=== PATIENT | female | born 1990 | race Caucasian/White ===

== ENCOUNTER 2017-11-20 15:21 | Emergency (ER) | payer OTHER ==
[2017-11-20 15:29] VITALS: RESP 18; TEMP 97.8
[2017-11-20] MEDS ORDERED: MORPHINE SULFATE 4 MG/ML SYRINGE IVP STA (16:03)
[2017-11-20] MEDS ORDERED: SODIUM CHLORIDE 0.9% 1,000 ML IV STA (16:03)
[2017-11-20] MEDS ORDERED: ONDANSETRON 4 MG/2 ML VIAL IVP STA (16:03)
--- NOTE | 2017-11-20 16:08 | ED ---
Chest Pain HPI - General Chief Complaint: Chest Pain Stated Complaint: Chest pain/dizzy Time Seen by Provider: 11/20/17 15:53 Source: patient Mode of arrival: ambulatory Limitations: no limitations - History of Present Illness Initial Comments: She presented with the chest pain and palpitation he started few hours ago she had a short episode of dizziness at work that palpitation and then the chest pain I did started a few hours ago there was no exertion involved, no nausea no vomiting no shortness of breath no pleuritic chest pain no history of any DVT or PE. Denies any fever no chills she is not coughing up any phlegm no symptoms of any infectious process. She did smoke for about 11 years now she is trying E cigarettes and now she denies any controls no history of pulmonary embolism or DVT in the past. Eyes any abdominal pain no frequency urgency dysuria no symptoms of TIA or CVA - Related Data Home Medications Medication Instructions Recorded Confirmed Ferrous Sulfate [Feosol] 325 mg PO DAILY 11/20/17 11/20/17 Ibuprofen [Motrin Ib] 400 - 600 mg PO Q6H PRN 11/20/17 11/20/17 Melatonin 5 mg PO HS 11/20/17 11/20/17 Allergies Allergy/AdvReac Type Severity Reaction Status Date / Time neomycin Allergy Rash/Hives Verified 11/20/17 16:10 Review of Systems ROS Statement: Those systems with pertinent positive or pertinent negative responses have been documented in the HPI. ROS Other: All systems not noted in ROS Statement are negative. EKG Findings - EKG Comments: EKG Findings:: EKG is a normal sinus rhythm ventricular rate is 72 MS interval is 162 QRS duration is 80 QT/QTc is 368/42 of this EKG does not reveal any ST elevation or ST depression Past Medical History Past Medical History: Asthma Additional Past Medical History / Comment(s): Anemia History of Any Multi-Drug Resistant Organisms: None Reported Additional Past Surgical History / Comment(s): Cyst , D&C Past Psychological History: No Psychological Hx Reported Smoking Status: Current every day smoker Past Alcohol Use History: Occasional Past Drug Use History: None Reported General Exam - General Exam Comments Initial Comments: General: The patient is awake and alert, in no distress, and does not appear acutely ill. Skin: Skin is warm and dry and no rashes or lesions are noted. Eye: Pupils are equal, round and reactive to light, extra-ocular movements are intact; there is normal conjunctiva bilaterally. Ears, nose, mouth and throat: There are moist mucous membranes and no oral lesions. Neck: The neck is supple, there is no tenderness or JVD. Cardiovascular: There is a regular rate and rhythm. No murmur, rub or gallop is appreciated. Respiratory: To auscultation bilateral, no wheezing no rhonchi no distress respiratory pacheco noticed Gastrointestinal: Soft, non-distended, non-tender abdomen without masses or organomegaly noted. There is no rebound or guarding present. Bowel sounds are unremarkable. Back: There is no tenderness to palpation in the midline. There is no obvious deformity. Musculoskeletal: Normal ROM, no tenderness, There is no pedal edema. There is no calf tenderness or swelling. No cords were appreciated. Neurological: CN II-XII intact, Cranial nerves III through XII are intact. There are no obvious motor or sensory deficits. Coordination appears grossly intact. Speech is normal. Psychiatric: Cooperative, appropriate mood & affect, normal judgment. Limitations: no limitations Course Vital Signs 11/20/17 11/20/17 15:26 16:35 Temperature 97.8 F Pulse Rate 77 68 Respiratory 18 18 Rate Blood Pressure 142/79 114/54 O2 Sat by Pulse 100 98 Oximetry She is reassessed at term 1730, troponin, chest x-ray, CBC, INR, compressive metabolic panel are unremarkable and she will be discharged home she was advised to follow-up with the cardiology associates to have a echocardiogram and to rule out any anatomical defect in the heart like hypertrophic cardiomyopathy get worse Disposition Clinical Impression: Chest pain, Palpitation Disposition: HOME SELF-CARE Condition: Good Instructions: Chest Pain (ED) Additional Instructions: She is advised to continue Tylenol 1 g every 8 when necessary for the discomfort in the chest on as-needed basis Referrals: None,Stated [Primary Care Provider] - 1-2 days Anais Gonsalez MD [STAFF PHYSICIAN] - 1-2 days
[2017-11-20 16:20] LABS: Basophils % (A) 0 %; Eosinophils # (A) 0.1 k/uL (0-0.7); Eosinophils % (A) 2 %; HCT 37.4 % (34.0-46.0); Lymphocytes # (A) 1.8 k/uL (1.0-4.8); Lymphocytes % (A) 27 %; MCH 30.7 pg (25.0-35.0); MCHC 34.8 g/dL (31.0-37.0); MCV 88.1 fL (80.0-100.0); Monocytes # (A) 0.3 k/uL (0-1.0); Monocytes % (A) 5 %; Neutrophils # (A) 4.4 k/uL (1.3-7.7); Neutrophils % (A) 65 %; Platelet Count 175 k/uL (150-450); RBC 4.25 m/uL (3.80-5.40); RDW 12.1 % (11.5-15.5); WBC 6.8 k/uL (3.8-10.6)
--- NOTE | 2017-11-20 16:22 | XR ---
EXAMINATION TYPE: XR chest 2V DATE OF EXAM: 11/20/2017 COMPARISON: NONE HISTORY: Chest pain TECHNIQUE: Frontal and lateral views of the chest are obtained. FINDINGS: There is no focal air space opacity. No evidence for pneumothorax. No pleural effusion. The cardiac silhouette size is within normal limits. The osseous structures are grossly intact. IMPRESSION: 1. No acute cardiopulmonary process.
[2017-11-20 16:28] LABS: Partial Thromboplastin Time 23.2 sec (22.0-30.0); Prothrombin Time 10.3 sec (9.0-12.0)
[2017-11-20 16:29] LABS: ALT 21 U/L (9-52); AST 15 U/L (14-36); Albumin 4.4 g/dL (3.5-5.0); Alkaline Phosphatase 57 U/L (38-126); Amylase 40 U/L (30-110); Anion Gap 12 mmol/L; Blood Urea Nitrogen 15 mg/dL (7-17); Calcium 9.3 mg/dL (8.4-10.2); Carbon Dioxide 23 mmol/L (22-30); Chloride 108 mmol/L (98-107); Glucose 89 mg/dL (74-99); Lipase 62 U/L (23-300); Potassium 4.1 mmol/L (3.5-5.1); Sodium 143 mmol/L (137-145); Total Bilirubin 0.2 mg/dL (0.2-1.3); Total Protein 6.7 g/dL (6.3-8.2)
[2017-11-20 16:37] VITALS: PULSE 68
[2017-11-20 16:58] LABS: Creatine Kinase 54 U/L (30-135)
[2017-11-20 17:10] LABS: Creatine Kinase MB 0.3 ng/mL (0.0-2.4); Troponin I <0.012 ng/mL (0.000-0.034)
[2017-11-20 17:41] VITALS: BP 121/68
== END 2017-11-20 17:51 | disposition home or self-care (01) ==
LOC: EDBD → EC 15:21
DX: R07.9 Chest pain, unspecified (principal); R00.2 Palpitations; R42 Dizziness and giddiness; D64.9 Anemia, unspecified; F17.290 Nicotine dependence, other tobacco product, uncomplicated; Z79.899 Other long term (current) drug therapy; Z88.1 Allergy status to other antibiotic agents
CPT/HCPCS: 99285; 96374; 96375; 96361; 36415; 93005; 80053; 82150; 82550; 82553; 83690; 83735; 84484; 85025; 85610; 85730; 81025; 71046; J2270; J2405

== ENCOUNTER → 2022-01-03 | Outpatient (CLI) | payer OTHER ==
--- NOTE | 2022-01-03 10:04 | USB ---
Reason for exam: clinical finding. Indicated problem(s): palpable abnormality in the right breast. Physical Findings: A clinical breast exam by your physician is recommended on an annual basis and results should be correlated with mammographic findings. US Breast Limited RT Right limited breast ultrasound including focal area of concern, retroareolar and axilla demonstrates a 3.7 x 3.9 x 1.5cm cystic lesion at 11 o'clock, 4cm from nipple and a 1.9 x 1.2 x 0.7cm cystic lesion at 12 o'clock, 4cm from nipple. Dense tissues are present throughout. Scanned 10-2 o'clock. Results were given to the patient verbally at the time of the exam. ASSESSMENT: Benign, BI-RAD 2 RECOMMENDATION: Routine screening mammogram of both breasts at age 38. Manage patient on a clinical basis. Percutaneous aspiration can be considered if these cysts become symptomatic. Continue monthly self breast exams.
== END | disposition home or self-care (01) ==
LOC: RADUSWWP 09:23
PROVIDERS: ATTEND Family Medicine
DX: N63.0 Unspecified lump in unspecified breast (principal)